=== PATIENT | female | born 1960 | race Caucasian/White ===

== ENCOUNTER 2019-03-19 18:30 | Emergency (ER) | payer OTHER ==
[2019-03-19 18:37] VITALS: BP 140/90; PULSE 85; TEMP 98.7; BMI 26.2
[2019-03-19] MEDS ORDERED: SUCRALFATE 1 GM/10 ML UNIT DOSE CUPS PO ONE (19:40)
[2019-03-19] MEDS ORDERED: SUCRALFATE 1 GM TABLET (FP) ONE (19:51)
[2019-03-19 20:07] LABS: BASO % 0.6 % (0-2.0); EOS % 0.3 % (0-4.5); HEMATOCRIT 42.1 % (32.4-45.2); HEMOGLOBIN 14.4 GM/dL (10.7-15.3); MCH 30.7 pg (25.7-33.7); MCHC 34.2 g/dl (32.0-36.0); MEAN CELL VOLUME 89.7 fl (80-96); MEAN PLT VOLUME 8.3 fl (7.5-11.1); MONO % 9.2 % (3.8-10.2); NEUT % 64.9 % (42.8-82.8); PLATELET COUNT 266 K/MM3 (134-434); RBC 4.69 M/mm3 (3.60-5.2); RDW 12.4 % (11.6-15.6); WHITE BLOOD COUNT 6.1 K/mm3 (4.0-10.0)
--- NOTE | 2019-03-19 20:08 | PDOC ---
History of Present Illness - General Chief Complaint: Pain Stated Complaint: ABD PAIN Time Seen by Provider: 03/19/19 19:29 History Source: Patient Exam Limitations: No Limitations - History of Present Illness Initial Comments: 03/19/19 20:36 Patient is a 58-year-old female with history of hyperlipidemia complaining of upper abdominal pain most in the epigastrium x3 weeks. Patient states she had been seen by her PMD and was referred to Dr. Becerra of GI whom she saw on 2018 and given Pepcid and Flagyl. Patient states she has not gotten any relief from these medications with her pain continues now 8/10, squeezing, intermittent. Daughter states that she has had no appetite, her heart has been racing and her blood pressure is elevated x1 week. Patient with issues that seem to be mostly GI, no concerns for ACS but will get cardiac enzymes x1, EKG and chest x-ray. EKG: SR 64, NAD, no ST-T wave changes Labs reviewed noted troponin negative no acute findings on lab work, Chest x-ray: I discussed the physical exam findings, ancillary test results and final diagnoses with the patient. I answered all of the patient's questions. The patient was satisfied with the care received and felt comfortable with the discharge plan and treatment plan. The Patient agrees to follow up with the primary care physician within 24-72 hours. Past History - Past Medical History Allergies/Adverse Reactions: Allergies Allergy/AdvReac Type Severity Reaction Status Date / Time No Known Allergies Allergy Verified 03/19/19 18:37 Home Medications: Ambulatory Orders Simvastatin 1 tab PO HS 07/01/15 COPD: No Hypercholesterolemia: Yes - Surgical History Abdominal Surgery: Yes - Psycho Social/Smoking Cessation Hx Smoking Status: No Smoking History: Never smoked Number of Cigarettes Smoked Daily: 0 *Physical Exam - Vital Signs Last Vital Signs Temp Pulse Resp BP Pulse Ox 98.7 F 85 18 140/90 97 03/19/19 18:33 03/19/19 18:33 03/19/19 18:33 03/19/19 18:33 03/19/19 18:33 ED Treatment Course - LABORATORY CBC & Chemistry Diagram: 03/19/19 19:40 03/19/19 19:40 - Medications Given in the ED: ED Medications Discontinued Medications Generic Name Dose Route Start Last Admin Trade Name Freq PRN Reason Stop Dose Admin Sucralfate 1 gm 03/19/19 19:40 03/19/19 19:56 Carafate Oral Suspension - PO 03/19/19 19:41 1 gm ONCE ONE Administration Discharge - Discharge Information Problems reviewed: Yes Clinical Impression/Diagnosis: Palpitations Condition: Stable Disposition: HOME - Follow up/Referral Referrals: Yoanna Mcclure FNP [Primary Care Provider] - - Patient Discharge Instructions Additional Instructions: Your Discharge Instructions: You must call primary care physician within 24 hours to arrange follow-up. Return to the Emergency Department with any new, persistent or worsening symptoms, for fever, chills, SOB, dizziness or any other concerning changes that may occur. Keep your appointment with Dr. Becerra. Take the medication as prescribed. If you are going to stop the medication she should speak with Dr. Becerra. - Post Discharge Activity
[2019-03-19 20:18] LABS: ANION GAP 8 MMOL/L (8-16); BLOOD UREA NITROGEN 10.8 mg/dL (7-18); CHLORIDE 104 mmol/L (98-107); CO2 27 mmol/L (21-32); CREATININE 0.7 mg/dL (0.55-1.3); GLUCOSE,RANDOM 104 mg/dL (74-106); POTASSIUM 3.7 mmol/L (3.5-5.1); SODIUM 139 mmol/L (136-145)
[2019-03-19 20:19] LABS: ALBUMIN 4.1 g/dl (3.4-5.0); ALK PHOS 60 U/L (45-117); BILIRUBIN,TOTAL 0.3 mg/dL (0.2-1); CALCIUM 9.5 mg/dL (8.5-10.1); LIPASE 179 U/L (73-393); SGOT/AST 15 U/L (15-37); SGPT/ALT 35 U/L (13-61); TOT PROT 7.6 g/dl (6.4-8.2)
--- NOTE | 2019-03-20 10:20 | EKG ---
Test Reason : Blood Pressure : / mmHG Vent. Rate : 064 BPM Atrial Rate : 064 BPM P-R Int : 148 ms QRS Dur : 102 ms QT Int : 394 ms P-R-T Axes : 060 033 048 degrees QTc Int : 406 ms NORMAL SINUS RHYTHM NORMAL ECG NO PREVIOUS ECGS AVAILABLE Confirmed by MASSIMO HAGER MD ([id number]) on 03/20/2019 10:19:40 AM Referred By: Confirmed By:MASSIMO HAGER MD
== END 2019-03-19 21:30 | disposition home or self-care (01) ==
LOC: JER 18:30
DX: R00.2 Palpitations (principal); E78.5 Hyperlipidemia, unspecified; E78.00 Pure hypercholesterolemia, unspecified
CPT/HCPCS: 36415; 71046-TC-FY; 80053; 82550; 83690; 84484; 85025; 93005; 93010; 99283-25

== ENCOUNTER → 2024-08-29 | Day surgery (SDC) | payer MEDICARE, OTHER | END | disposition home or self-care (01) | LOC: JRADIR 09:38 | PROVIDERS: ATTEND Internal Medicine | PROC: 0GBH3ZX Excision of Right Thyroid Gland Lobe, Percutaneous Approach, Diagnostic (ICD-10-PCS; principal; 2024-08-29) | DX: E04.1 Nontoxic single thyroid nodule (principal) | CPT/HCPCS: 10005; 76942; 88173; 88305-TC ==